=== PATIENT | female | born 1995 | race Two or more races ===

== ENCOUNTER 2021-09-08 12:09 | Emergency (ER) | payer OTHER ==
[~2021-09-08] VITALS: Ht 170.2 cm; Wt 68.0 kg
== END 2021-09-08 16:24 | disposition home or self-care (01) ==
LOC: ER 12:09
DX: B34.9 Viral infection, unspecified (principal); Z20.822 Contact with and (suspected) exposure to COVID-19; R05.9 Cough, unspecified